=== PATIENT | male | born 1955 | race African-American/Black ===

== ENCOUNTER 2020-11-02 05:45 | Emergency (ER) | payer MEDICAID ==
[~2020-11-02] VITALS: Ht 167.6 cm; Wt 100.0 kg
--- NOTE | 2020-11-02 06:00 | NUR ---
HE HAS A WOUND TO HIS LEFT LOWER [place]. BOTH OF HIS LOWER LEGS ARE SCALY, DRY AND THICK AND HARD SKIN.
[2020-11-02] MEDS ORDERED: buprenorphine/naloxone 8MG-2MG SUBlingual film SL ONE (06:10)
[2020-11-02] MEDS ORDERED: normal saline 1000ML IV soln IVB ONE (06:10)
[2020-11-02] MEDS ORDERED: proCHLORperazine 10 MG/2 ml inj IV ONE (06:10)
[2020-11-02] MEDS ORDERED: LORazepam 2 mg/ml vial IV ONE (06:10)
[2020-11-02] MEDS ORDERED: cloNIDine 0.1 mg tablet PO ONE (06:20)
[2020-11-02 06:42] LABS: BASOPHILS # (AUTO) 0.1 X10'3 (0-0.2); BASOPHILS % (AUTO) 0.7 % (0-1); EOSINOPHILS # (AUTO) 0.1 X10'3 (0-0.9); EOSINOPHILS % (AUTO) 1.2 % (0-6); HEMATOCRIT 34.6 % (42.0-52.0); HEMOGLOBIN 11.1 g/dl (14.0-17.9); LYMPHOCYTES # (AUTO) 1.8 X10'3 (1.1-4.8); LYMPHOCYTES % (AUTO) 21.2 % (21-51); MEAN CORPUSCULAR HGB CONC 32.3 g/dL (33.0-36.5); MEAN CORPUSCULAR VOLUME 68.2 FL (78-98); MONOCYTES # (AUTO) 0.5 X10'3 (0-0.9); MONOCYTES % (AUTO) 5.9 % (2-12); PLATELET COUNT 361 X10'3 (140-440); RED BLOOD COUNT 5.07 X10'6 (4.70-6.10); RED CELL DISTRIBUTION WIDTH 17.2 % (11.5-14.5); WHITE BLOOD COUNT 8.4 X10'3 (4.5-11.0)
[2020-11-02 06:45] LABS: ALANINE AMINOTRANSFERASE 16 U/L (12-78); ALBUMIN 2.9 G/DL (3.4-5.0); ALBUMIN/GLOBULIN RATIO 0.4 (1.1-1.5); ALKALINE PHOSPHATASE 116 IU/L (46-116); ANION GAP 12 (8-16); BILIRUBIN,TOTAL 0.5 MG/DL (0.1-1.0); BLOOD UREA NITROGEN 10 MG/DL (7-18); BUN/CREATININE RATIO 8.1 (5.4-32.0); CALCIUM 9.1 MG/DL (8.5-10.1); CHLORIDE 99 MMOL/L (99-107); CREATININE 1.24 MG/DL (0.60-1.10); GLUCOSE 151 MG/DL (70-104); POTASSIUM 4.3 MMOL/L (3.5-5.1); SODIUM 134 MMOL/L (135-145); TOTAL CARBON DIOXIDE 23.2 MMOL/L (24-32); TOTAL PROTEIN 9.6 G/DL (6.4-8.2); eGFR 71 ML/MIN
[2020-11-02 06:46] LABS: ASPARTATE AMINO TRANSFERASE 27 U/L (10-37)
[2020-11-02 06:47] LABS: MAGNESIUM 1.9 MG/DL (1.5-2.4)
[2020-11-02] MEDS ORDERED: BUPR1FIL3 SL (06:47)
[2020-11-02] MEDS ORDERED: METO-292 PO (06:50)
[2020-11-02] MEDS ORDERED: LOPE2CAP PO (06:59)
[2020-11-02] MEDS ORDERED: hydrALAZINE 20mg/ml inj. IV ONE ×2 (07:00→09:20)
--- NOTE | 2020-11-02 07:48 | NUR ---
discussed pt's bp w/ edmd [place]; new orders received.
[2020-11-02] MEDS ORDERED: labetalol 20mg/4ml (5mg/ml) syringe IV ONE (07:50)
[2020-11-02 08:00] LABS: PLATELET ESTIMATE NORMAL
[2020-11-02 08:01] LABS: POLYCHROMASIA 1+
[2020-11-02 08:02] LABS: ANISOCYTOSIS 1+; ELLIPTOCYTES FEW; MICROCYTOSIS 2+; TEAR DROP CELLS 1+
[2020-11-02 08:04] LABS: ACANTHOCYTES FEW; SCHISTOCYTES FEW
--- NOTE | 2020-11-02 09:19 | NUR ---
discussed pt's continued agitation and bp w/ edmd [place]; new orders received.
[2020-11-02] MEDS ORDERED: LORazepam 1 MG tablet PO ONE (09:20)
[2020-11-02] MEDS ORDERED: amLODIPine 5mg tablet PO ONE (09:20)
[2020-11-02] MEDS ORDERED: metoclopramide 5 mg/ml inj IV ONE (09:20)
[2020-11-02 10:27] VITALS: BP 178/120
== END 2020-11-02 10:28 | disposition home or self-care (01) ==
LOC: ER 05:46
DX: F11.23 Opioid dependence with withdrawal (principal); R19.7 Diarrhea, unspecified; I10 Essential (primary) hypertension; E11.9 Type 2 diabetes mellitus without complications; Z79.899 Other long term (current) drug therapy
CPT/HCPCS: 36415; 71045; 80053; 83735; 84484; 85008; 85025; 93005; 96374; 96375; 96376; 99285; J0360; J0780; J2060; J2765; J7030; J3490